=== PATIENT | male | born 1960 | race Caucasian/White ===

== ENCOUNTER 2016-07-23 14:38 | Emergency (ER) | payer MEDICAID, OTHER ==
[2016-07-23 14:54] VITALS: TEMP 98.5
--- NOTE | 2016-07-23 15:22 | ED PDOC ---
Arrival/HPI - General Chief Complaint: Wound Check Time Seen by Provider: 07/23/16 14:42 Historian: Patient - History of Present Illness Narrative History of Present Illness (Text): 07/23/16 15:05 56yr old male presents today with concerns for wound dehiscence of right sided abdominal wound from gastric sleeve surgery on Jul 11 2016. pt denies pain. denies fever/chills. + bowel movements. Tolerating liquid diet. no cp or sob. no vomiting/diarrhea. pt states he occasionally will have blood from the open wound. Time/Duration: Other (4 days ago) Past Medical History - Provider Review Nursing Documentation Reviewed: Yes - Travel History Have you recently traveled outside [place] w/in the past 3 mons?: No - Infectious Disease Hx of Infectious Diseases: None - Tetanus Immunization Tetanus Immunization: Unknown - Cardiac Hx Hypertension: Yes Hx Pacemaker: No Other/Comment: pt states he had a cath and no stent - Pulmonary Hx Respiratory Disorders: No - Neurological Hx Paralysis: No - HEENT Hx HEENT Disorder: No - Renal Hx Renal Disorder: No - Endocrine/Metabolic Hx Endocrine Disorders: No - Hematological/Oncological Hx Blood Transfusions: No Hx Blood Transfusion Reaction: No - Integumentary Hx Dermatological Disorder: No - Musculoskeletal/Rheumatological Hx Musculoskeletal Disorders: Yes - Gastrointestinal Hx Gastrointestinal Disorders: No - Genitourinary/Gynecological Hx Genitourinary Disorders: No - Psychiatric Hx Emotional Abuse: No Hx Physical Abuse: No Hx Substance Use: No - Surgical History Other/Comment: s/p laparoscopic gastric sleeves on 07/11/16 - Anesthesia Hx Anesthesia: Yes Hx Anesthesia Reactions: No Hx Malignant Hyperthermia: No - Suicidal Assessment Feels Threatened In Home Enviroment: No Family/Social History - Physician Review Nursing Documentation Reviewed: Yes Family/Social History: Unknown Family HX Smoking Status: Never Smoked Hx Alcohol Use: No Hx Substance Use: No Allergies/Home Meds Allergies/Adverse Reactions: Allergies No Known Allergies Allergy (Verified 07/23/16 14:51) Home Medications: Home Meds Medication Instructions Recorded Confirmed Aspirin 81 mg PO QAM 01/31/12 07/23/16 Metformin HCl [Metformin] 1,000 mg PO BID 01/31/12 07/23/16 Metoprolol Tartrate 50 mg PO BID 01/31/12 07/23/16 Omeprazole 20 mg PO QAM 01/31/12 07/23/16 Simvastatin 40 mg PO HS 01/31/12 07/23/16 Tamsulosin Hydrochloride 0.4 mg PO HS 01/31/12 01/31/12 Review of Systems - Review of Systems Constitutional: absent: Fatigue, Fevers Respiratory: absent: SOB, Cough Cardiovascular: absent: Chest Pain, Palpitations Gastrointestinal: absent: Abdominal Pain, Diarrhea, Nausea, Vomiting Neurological: absent: Headache Physical Exam Vital Signs Reviewed: Yes Vital Signs Temp Pulse Resp BP Pulse Ox 07/23/16 14:40 98.5 F 71 20 119/81 96 Temperature: Afebrile Blood Pressure: Normal Pulse: Regular Respiratory Rate: Normal Appearance: Positive for: Well-Appearing, Non-Toxic, Comfortable Pain Distress: None Mental Status: Positive for: Alert and Oriented X 3 - Systems Exam Head: Present: Atraumatic Neck: Present: Normal Range of Motion Respiratory/Chest: Present: Clear to Auscultation, Good Air Exchange. No: Respiratory Distress, Accessory Muscle Use Cardiovascular: Present: Regular Rate and Rhythm, Normal S1, S2. No: Murmurs Abdomen: Present: Normal Bowel Sounds, Other (there is a 2.5cm wound dehiscence noted with dark blood drainage with palpation around the wound dehiscence). No : Tenderness, Distention, Peritoneal Signs, Rebound, Guarding Neurological: Present: GCS=15 Skin: Present: Warm, Dry Psychiatric: Present: Alert, Oriented x 3 Medical Decision Making ED Course and Treatment: 07/23/16 15:24 pt is non toxic well appearing; no distress. vitals stable. pt seen and evaluated by dr. lloyd pt seen and evaluated by dr. Bravo surgical corsetier. pt with wound dehiscence. With possible superficial hematoma; abdomen soft non tender non distended; call placed to patients surgeon dr. Theodore Mast; case discussed with dr. Mcneil; covering for dr. Mast; she advised applying steri strips and having the patient call sunday to have a follow up appointment for sunday. i discussed the plan in depth with the patient and stressed importance of f/u with the surgeon on sunday. Patient verbalizes understanding of discharge instructions and need for immediate followup. all aspects of this case were discussed the attending of record. impression: wound dehiscence Follow up with the Surgeon on sunday; Call sunday morning to schedule an appointment for sunday Return immediately if symptoms worsen,persist or if new symptoms develop. Disposition/Present on Arrival - Present on Arrival Any Indicators Present on Arrival: No History of DVT/PE: No History of Uncontrolled Diabetes: No Urinary Catheter: No History of Decub. Ulcer: No History Surgical Site Infection Following: None - Disposition Have Diagnosis and Disposition been Completed?: Yes Diagnosis: Wound dehiscence Disposition: HOME/ ROUTINE Disposition Time: 15:57 Patient Plan: Discharge Condition: GOOD Additional Instructions: Follow up with the Surgeon on sunday; Call sunday to schedule an appointment for sunday Return immediately if symptoms worsen,persist or if new symptoms develop. Referrals: Tomas Wilson MD [Primary Care Provider] - Follow up with primary Theodore Mast MD [Medical Doctor] - Follow up with primary
[2016-07-23 16:06] VITALS: BP 121/79; PULSE 68; RESP 18; O2SAT 98
== END 2016-07-23 16:20 | disposition home or self-care (01) ==
LOC: ED 14:38
DX: T81.30XA Disruption of wound, unspecified, initial encounter (principal)